=== PATIENT | male | born 1995 | race Hispanic/Latino ===

== ENCOUNTER 2022-11-24 21:21 | Emergency (ER) | payer SELFPAY ==
[2022-11-24 21:49] LABS: #Monocytes 0.2 10x3/uL (0.0-1.1); #Neutrophils 3.5 10x3/uL (1.5-8.4); %Basophils 0.5 % (0.0-2.0); %Eosinophils 0.6 % (0.0-6.0); %Lymphocytes 39.4 % (18.0-47.0); %Monocytes 3.8 % (0.0-10.0); %Neutrophils 55.4 % (40.0-75.0); Hematocrit 42.2 % (38.8-50.0); Hemoglobin 15.5 g/dL (13.5-17.5); Mean Corpuscular HGB CONC 36.7 g/dL (32.0-36.0); Mean Corpuscular Hemoglobin 32.3 pg (27.0-33.0); Mean Corpuscular Volume 87.9 fl (81.2-95.1); Mean Platelet Volume 11.3 fl (7.4-10.4); Platelet Count 230 10x3/uL (150-450); RBC Distribution Width 10.9 % (11.5-14.5); White Blood Cell (WBC) Count 6.3 10x3/uL (3.5-10.5)
[2022-11-24 21:57] LABS: Actual Bicarbonate (HCO3v) 22.6 mEq/L (22-28); Base Excess -1.3 mEq/L (-2 - +2); Calcium, Ionized (venous) 1.18 mmol/L (1.16-1.32); Chloride (VBG) 92 mmol/L (98-106); Hematocrit-VBG 47 % (42.0-52.0); Potassium (VBG) 3.86 mmol/L (3.70-5.30); Puncture Site Other Site; RapidComm Collect By CBN; Sodium 134.8 mmol/L (133-146); pH (venous) 7.417 (7.32-7.43)
[2022-11-24 22:03] LABS: Bilirubin Neg (Negative); Blood, Urine Negative (Negative); Clarity Clear (Clear); Glucose, Urine (Dipstick) >=1000 mg/dL (Negative); Ketone, Urine 15 mg/dL (Negative); Leukocyte Negative (Negative); Nitrite Negative (Negative); Protein, Urine (Dipstick) 15 mg/dl (Neg-Trace); Urobilinogen Normal mg/dL (Less than 2)
[2022-11-24 22:05] LABS: ALT (SGPT) 94 U/L (8-55); AST (SGOT) 51 U/L (5-34); Alkaline Phosphatase 111 U/L (40-110); Anion Gap 22 mmol/L (10-20); BUN (Urea Nitrogen) 13 mg/dL (8.9-20.6); Bilirubin, Total 0.4 mg/dL (0.2-1.2); Calc. Creatinine Clearance 0 mL/min (70-130); Carbon Dioxide 23 mmol/L (22-29); Chloride 90 mmol/L (98-107); Estimated GFR 85; Globulin 2.8 g/dL (2.4-3.5); Lipase 108 U/L (8-78); Potassium 3.9 mmol/L (3.5-5.1); Protein, Total 7.8 g/dL (6.0-8.3); Sodium 131 mmol/L (136-145)
[2022-11-24 22:07] LABS: Glucose 583 mg/dL (70-105)
[2022-11-24 22:23] LABS: Bacteria/HPF None Seen HPF (None Seen); CAUTI Indications for Culture Dysuria,urgency,freq; RBC/HPF 0-3 HPF (0-3); Squamous Epithelial 0-3 HPF (0-3); WBC/HPF None Seen HPF (0-3)
[2022-11-24 22:24] LABS: Urine Culture Reflex No No
[2022-11-25] MEDS ORDERED: Insulin Regular 300 UNITS/3 ML VIAL ONE (00:24)
[2022-11-25 00:41] LABS: Lactic Acid 0.9 mmol/L (0.5-2.2)
[2022-11-25 00:52] LABS: Anion Gap 16 mmol/L (10-20); BUN (Urea Nitrogen) 10 mg/dL (8.9-20.6); Calc. Creatinine Clearance 0 mL/min (70-130); Calcium 8.8 mg/dL (7.8-10.44); Carbon Dioxide 23 mmol/L (22-29); Chloride 98 mmol/L (98-107); Estimated GFR 121; Glucose 336 mg/dL (70-105); Potassium 3.7 mmol/L (3.5-5.1); Sodium 133 mmol/L (136-145)
== END 2022-11-25 01:50 | disposition home or self-care (01) ==
LOC: CSHERS 21:21
DX: E11.65 Type 2 diabetes mellitus with hyperglycemia (principal); E87.1 Hypo-osmolality and hyponatremia; F17.290 Nicotine dependence, other tobacco product, uncomplicated
CPT/HCPCS: 36415; 36416; 80048; 80053; 81001; 82010; 82805; 83605; 83690; 85025; 96361; 96374; J1815